=== PATIENT | female | born 1950 | race Caucasian/White ===

== ENCOUNTER → 2024-01-06 11:06 | Outpatient (BNVA) | payer MEDICARE, OTHER, SELFPAY | PROVIDERS: PCP Family Medicine; Referring Provider Family Medicine; Visit Provider Podiatrist | DX: I70.203 Unspecified atherosclerosis of native arteries of extremities, bilateral legs (principal); E11.9 Type 2 diabetes mellitus without complications; B35.1 Tinea unguium; L60.3 Nail dystrophy; B35.3 Tinea pedis; R25.2 Cramp and spasm; I73.89 Other specified peripheral vascular diseases | CPT/HCPCS: 11719; 11720; 99204 ==